=== PATIENT | female | born 1985 | race American Indian/Alaskan Native ===

== ENCOUNTER 2020-08-23 21:10 | Emergency (ER) | payer SELFPAY ==
[2020-08-23 21:52] VITALS: BP 139/96
[2020-08-23] MEDS ORDERED: ASPIRIN 325 MG TAB PO ONE (21:52)
[2020-08-23 22:16] LABS: Basophils % (Auto) 0.4 % (0.0-1.8); Eosinophils # (Auto) 0.3 K/mm3 (0.0-0.4); Eosinophils % (Auto) 3.7 % (0.0-4.3); Hematocrit 36.6 % (30.3-42.9); Hemoglobin 11.8 gm/dl (10.1-14.3); Lymphocytes # (Auto) 1.5 K/mm3 (1.2-5.4); Lymphocytes % (Auto) 20.6 % (13.4-35.0); Mean Corpuscular HGB Conc 32 % (30-34); Mean Corpuscular Volume 82 fl (79-97); Monocytes # (Auto) 0.3 K/mm3 (0.0-0.8); Monocytes % (Auto) 3.7 % (0.0-7.3); Platelet Count 406 K/mm3 (140-440); Red Blood Count 4.45 M/mm3 (3.65-5.03); Red Cell Distribution Width 16.9 % (13.2-15.2)
--- NOTE | 2020-08-23 22:37 | XRay Report ---
CHEST 2 VIEWS INDICATION / CLINICAL INFORMATION: chest pain. COMPARISON: None available. FINDINGS: SUPPORT DEVICES: None. HEART / MEDIASTINUM: No significant abnormality. LUNGS / PLEURA: There is bilateral interstitial prominence with patchy pulmonary opacities in the flo g bases. No pneumothorax. ADDITIONAL FINDINGS: No significant additional findings. IMPRESSION: 1. Bilateral interstitial prominence could reflect mild pulmonary edema. There may be a component of emphysema as well. 2. Patchy pulmonary opacities in the lung bases may represent atelectasis although developing pneumon ia is a consideration. Signer Name: Sharad Landon MD Signed: 08/23/2020 10:32 PM Workstation Name: [id number]
[2020-08-23 22:41] LABS: Alanine Aminotransferase 5 units/L (7-56); Albumin 3.5 g/dL (3.9-5); Blood Urea Nitrogen 6 mg/dL (7-17); Calcium 8.9 mg/dL (8.4-10.2); Hemolysis Index 4
[2020-08-23 22:45] LABS: BUN/Creatinine Ratio 10
[2020-08-23] MEDS ORDERED: ASPIRIN 325 MG TAB ONE (23:54)
[2020-08-24] MEDS ORDERED: predniSONE 20 MG TAB PO ONE (00:23)
[2020-08-24] MEDS ORDERED: IPRATROPIUM/ALBUTEROL SULFATE 3 ML AMPUL.NEB IH ONE (00:23)
[2020-08-24] MEDS ORDERED: LIDOCAINE-MPF (1%) 10 MG/1 ML VIAL 5 ML INFILTRATI ONE (00:23)
[2020-08-24] MEDS ORDERED: ALBUTEROL 2.5 MG/3 ML NEBU IH ONE (00:23)
[2020-08-24] MEDS ORDERED: AZITHROMYCIN 250 MG TAB PO ONE (00:23)
--- NOTE | 2020-08-24 02:57 | Emergency Department Report ---
ED Chest Pain HPI - General Chief Complaint: Chest Pain Stated Complaint: CHEST PAIN/ADRIAN Source: patient Mode of arrival: Ambulatory Limitations: No Limitations - History of Present Illness Initial Comments: Patient is a 35-year-old -[place] female with a history of SLE and chronic pain due to fibromyalgia who presents to the ED with complaint of acute onset persistent shortness of breath, left lateral chest wall pain, chest tightness and persistent dry cough for the last 1 week but worse in the last 2 days. Patient states that any movement or deep inhalation makes the pain worse. Patient also states that the pain radiated to her left mid posterior thoracic area. Patient denies fever, chills, nausea, vomiting, dizziness, syncope, abdominal pain, traumatic injury, heavy lifting, dysuria, urinary frequency and urgency, sore throat, nasal and sinus congestion. MD Complaint: chest pain (Left lateral chest wall pain), other (Shortness of breath, persistent dry cough) -: Sudden, week(s) (1) Onset: during exertion, awoke with symptoms Pain Location: left chest (LATERAL) Pain Radiation: back (Mid posterior thoracic area) Severity: severe Severity scale (0 -10): 7 Quality: tightness, aching, sharp Consistency: constant Improves With: nothing Worsens With: exertion, inspiration, palpation, movement re: dyspnea. denies: nausea, vomting, diaphoresis, sense of impending doom Other Symptoms: cough. denies: fever, syncope, rash, acid taste in mouth, leg swelling, palpitations, burping Treatments Prior to Arrival: none Aspirin use within the Past 7 Days: (0) No - Related Data On Oral Contraceptives: No Previous Rx's Medication Instructions Recorded Last Taken Type Albuterol Sulfate [Proventil Hfa] 1 - 2 puff IH Q4H PRN #1 hfa.aer.ad 08/24/20 Unknown Rx Benzonatate [Tessalon Perles] 100 mg PO Q8HR #30 capsule 08/24/20 Unknown Rx Ibuprofen [Motrin] 600 mg PO Q8H PRN #30 tablet 08/24/20 Unknown Rx levoFLOXacin [Levaquin TAB] 500 mg PO QDAY #10 tablet 08/24/20 Unknown Rx methylPREDNISolone [Medrol 4MG 4 mg PO DAILY #21 tab.ds.pk 08/24/20 Unknown Rx DOSEPAK (21 tabs)] Allergies Allergy/AdvReac Type Severity Reaction Status Date / Time No Known Allergies Allergy Unverified 08/23/20 21:48 Heart Score - HEART Score History: Slightly suspicious EKG: Normal Age: < 45 Risk factors: 1-2 risk factors Troponin: < normal limit HEART Score: 1 - Critical Actions Critical Actions: 0-3 pts:0.9-1.7%risk of adverse cardiac event.Candidate for discharge ED Review of Systems ROS: Stated complaint: CHEST PAIN/ADRIAN Other details as noted in HPI Constitutional: denies: chills, fever Eyes: denies: eye pain, eye discharge, vision change ENT: congestion. denies: ear pain, throat pain Respiratory: cough, shortness of breath, SOB with exertion, wheezing Cardiovascular: chest pain (Left lateral chest pain). denies: palpitations, edema Endocrine: no symptoms reported Gastrointestinal: denies: abdominal pain, nausea, vomiting, diarrhea Genitourinary: denies: urgency, dysuria, discharge Musculoskeletal: denies: back pain, joint swelling, arthralgia Skin: denies: rash, lesions Neurological: denies: headache, weakness, paresthesias Psychiatric: denies: anxiety, depression Hematological/Lymphatic: denies: easy bleeding, easy bruising ED Past Medical Hx - Past Medical History Previous Medical History?: Yes Additional medical history: Lupus, connective tissue disease, fibromyalgia - Surgical History Additional Surgical History: Torn meniniscus - Social History Smoking Status: Never Smoker - Medications Home Medications: Home Medications Medication Instructions Recorded Confirmed Last Taken Type Albuterol Sulfate [Proventil Hfa] 1 - 2 puff IH Q4H PRN #1 hfa.aer.ad 08/24/20 Unknown Rx Benzonatate [Tessalon Perles] 100 mg PO Q8HR #30 capsule 08/24/20 Unknown Rx Ibuprofen [Motrin] 600 mg PO Q8H PRN #30 tablet 08/24/20 Unknown Rx levoFLOXacin [Levaquin TAB] 500 mg PO QDAY #10 tablet 08/24/20 Unknown Rx methylPREDNISolone [Medrol 4MG 4 mg PO DAILY #21 tab.ds.pk 08/24/20 Unknown Rx DOSEPAK (21 tabs)] ED Physical Exam - General Limitations: No Limitations General appearance: alert, in no apparent distress - Head Head exam: Present: atraumatic, normocephalic, normal inspection - Eye Eye exam: Present: normal appearance, PERRL, EOMI. Absent: periorbital swelling, periorbital tenderness Pupils: Present: normal accommodation - ENT ENT exam: Present: normal exam, normal orophraynx, mucous membranes moist, TM's normal bilaterally, normal external ear exam - Neck Neck exam: Present: normal inspection, full ROM - Respiratory Respiratory exam: Present: wheezes (Mildly diffuse coarse wheezes throughout), rhonchi (Left lower lobe audible crackling rhonchi), chest wall tenderness (Palpable left lateral chest wall tenderness). Absent: respiratory distress, rales, accessory muscle use, decreased breath sounds, prolonged expiratory - Cardiovascular Cardiovascular Exam: Present: normal rhythm, tachycardia, normal heart sounds. Absent: systolic murmur, diastolic murmur, rubs, gallop - GI/Abdominal GI/Abdominal exam: Present: soft, normal bowel sounds. Absent: tenderness, guarding, rebound, hyperactive bowel sounds, hypoactive bowel sounds, organomegaly - Extremities Exam Extremities exam: Present: normal inspection, full ROM, normal capillary refill - Back Exam Back exam: Present: normal inspection, full ROM. Absent: tenderness, CVA tenderness (R), CVA tenderness (L), muscle spasm, paraspinal tenderness, vertebral tenderness - Neurological Exam Neurological exam: Present: alert, oriented X3, CN II-XII intact, normal gait, reflexes normal - Psychiatric Psychiatric exam: Present: normal affect, normal mood, anxious - Skin Skin exam: Present: warm, dry, intact, normal color. Absent: rash ED Course Vital Signs 08/23/20 08/24/20 21:51 02:09 Temperature 99.1 F Pulse Rate 102 H Pulse Rate [ 110 H Bilateral Throughout] Respiratory 18 Rate Respiratory 16 Rate [Bilateral Throughout] Blood Pressure 139/96 O2 Sat by Pulse 99 Oximetry JACOB score - Jacob Score Age > 65: (0) No Aspirin use within the Past 7 Days: (0) No 3 or more CAD Risk Factors: (0) No 2 or more Angina events in past 24 hrs: (0) No Known CAD with more than 50% Stenosis: (0) No Elevated Cardiac Markers: (0) No ST Deviation Greater than 0.5mm: (0) No JACOB Score: 0 ED Medical Decision Making - Lab Data Result diagrams: 08/23/20 22:03 08/23/20 22:03 - Radiology Data [facility] [address] [place] [address] XRay Report Signed Patient: SILVIA CATALAN MR#: [id number] : 1985 Acct:[id number] Age/Sex: 35 / F ADM Date: 08/23/20 Loc: ED Attending Dr: Ordering Physician: ED MD ROSAURA Date of Service: 08/23/20 Procedure(s): XR chest routine 2V Accession Number(s): [id number] cc: ED MD ROSAURA Fluoro Time In Minutes: CHEST 2 VIEWS INDICATION / CLINICAL INFORMATION: chest pain. COMPARISON: None available. FINDINGS: SUPPORT DEVICES: None. HEART / MEDIASTINUM: No significant abnormality. LUNGS / PLEURA: There is bilateral interstitial prominence with patchy pulmonary opacities in the lung bases. No pneumothorax. ADDITIONAL FINDINGS: No significant additional findings. IMPRESSION: 1. Bilateral interstitial prominence could reflect mild pulmonary edema. There may be a component of emphysema as well. 2. Patchy pulmonary opacities in the lung bases may represent atelectasis although developing pneumonia is a consideration. Signer Name: Evelina Landon MD Signed: 08/23/2020 10:32 PM Workstation Name: [id number] Transcribed By: SS Dictated By: EVELINA LANDON Electronically Authenticated By: EVELINA LANDON Signed Date/Time: 08/23/202231 DD/ 30 TD/TT: - Medical Decision Making This is a 35-year-old -[place] female with a history of SLE and chronic pain due to fibromyalgia who presents to the ED with complaint of acute onset persistent shortness of breath, left lateral chest wall pain, chest tightness and persistent dry cough for the last 1 week but worse in the last 2 days. Patient states that any movement or deep inhalation makes the pain worse. Patient also states that the pain radiated to her left mid posterior thoracic area. In the ED, patient is alert and oriented x3 and is not in any distress but anxious and tachycardic in triage. Lab test results were reviewed and are all nonactionable including initial and repeat troponin levels. Patient heart score is 1. The EKG shows sinus rhythm with a ventricular rate of [address] or T wave abnormalities. Chest x-ray shows bilateral interstitial prominence could reflect mild pulmonary edema. There may be a component of emphysema as well. It also showed patchy pulmonary opacities in the lung bases may represent atelectasis although developing pneumonia is a consideration. Patient received DuoNeb and albuterol treatment in the ED. Patient also received steroids in the ED. Based on these findings, the patient also received Rocephin 1 g intramuscular injection and azithromycin 500 mg p.o. x1. On reevaluation, patient's pain is well controlled medications. Patient ade schilling is well controlled as well. Patient was therefore discharged home on antibiotics, albuterol inhaler, steroid Dosepak and pain medications. Patient was advised to follow-up with her primary care physician in 3 to 5 days for reevaluation or return to the ED immediately if symptoms get worse. - Differential Diagnosis Pneumonia; asthma; bronchitis; ACS; COVID-19; URI Critical Care Time: Yes Critical care attestation.: If time is entered above; I have spent that time in minutes in the direct care of this critically ill patient, excluding procedure time. Critical Care Time: 35 MINUTES ED Disposition Clinical Impression: Shortness of breath, Pleuritic chest pain, Nonspecific chest pain Community acquired pneumonia Qualifiers: Laterality: left Lung location: lower lobe of lung Qualified Code(s): J18.9 - Pneumonia, unspecified organism Disposition: DC-01 TO HOME OR SELFCARE Is pt being admited?: No Does the pt Need Aspirin: No Condition: Stable Instructions: Nonspecific Chest Pain, Adult, Bacterial Pneumonia (ED), Nonspecific Chest Pain, Adult, Qzko-dl-Qcyl, Community-Acquired Pneumonia, Adult, [id number] Additional Instructions: All lab test results were reviewed and are all nonactionable. Chest x-ray shows signs consistent with left lower lobe pneumonia. Therefore take medications with food, drink plenty of fluids and follow-up with your primary care physician in 5 to 7 days for reevaluation. Return to the ED immediately if symptoms get worse. Prescriptions: levoFLOXacin [Levaquin TAB] 500 mg PO QDAY #10 tablet methylPREDNISolone [Medrol 4MG DOSEPAK (21 tabs)] 4 mg PO DAILY #21 tab.ds.pk Ibuprofen [Motrin] 600 mg PO Q8H PRN #30 tablet PRN Reason: Pain Albuterol Sulfate [Proventil Hfa] 1 - 2 puff IH Q4H PRN #1 hfa.aer.ad PRN Reason: Shortness Of Breath Benzonatate [Tessalon Perles] 100 mg PO Q8HR #30 capsule Referrals: [facility] [Provider Group] - 3-5 Days Time of Disposition: 02:59 Print Language: CHINESE
--- NOTE | 2020-08-25 09:51 | Electrocardiograph Report ---
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
--- NOTE | 2020-08-25 09:52 | Electrocardiograph Report ---
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
== END 2020-08-24 03:15 | disposition home or self-care (01) ==
LOC: ED 21:10
DX: J18.9 Pneumonia, unspecified organism (principal); R07.89 Other chest pain; R06.02 Shortness of breath; Z79.899 Other long term (current) drug therapy; Z98.890 Other specified postprocedural states
CPT/HCPCS: 36415; 71046; 80053; 84484; 85025; 93005; 94640; 96372; 99284; J0696; J7512; 94644

== ENCOUNTER 2020-09-04 11:24 | Emergency (ER) | payer SELFPAY ==
[2020-09-04] MEDS ORDERED: SODIUM CHLORIDE 0.9% 1000 ML 1,000 ML IV ONE (11:40)
[2020-09-04] MEDS ORDERED: ACETAMINOPHEN 325 MG TAB PO ONE (11:40)
--- NOTE | 2020-09-04 11:43 | Event Note ---
ED Screening Note Date of service: 09/04/20 Time: 11:42 ED Screening Note: Patient presents to the ER today with complaints of fever (101 today at work); cough, shortness of breath, wheezing, chest tightness, runny nose, nasal congestion and sore throat. Onset yesterday. Patient was diagnosed with pneumonia about 2 weeks ago. She was prescribed antibiotics which she completed. She states that she has started to feel better after the medications. She denies any history of tobacco use, asthma or any other lung disease, she denies any heart disease, diabetes or any significant past medical history This initial assessment/diagnostic orders/clinical plan/treatment(s) is/are subject to change based on patients health status, clinical progression and re- assessment by fellow clinical providers in the ED. Further treatment and workup at subsequent clinical providers discretion. Patient/guardian urged not to elope from the ED as their condition may be serious if not clinically assessed and managed. Initial orders include: CBC, CMP, mag, chest x-ray/EKG
[2020-09-04 11:54] LABS: Basophils % (Auto) 0.2 % (0.0-1.8); Eosinophils # (Auto) 0.2 K/mm3 (0.0-0.4); Eosinophils % (Auto) 2.2 % (0.0-4.3); Hematocrit 35.5 % (30.3-42.9); Hemoglobin 11.7 gm/dl (10.1-14.3); Lymphocytes # (Auto) 1.3 K/mm3 (1.2-5.4); Mean Corpuscular HGB Conc 33 % (30-34); Mean Corpuscular Volume 82 fl (79-97); Monocytes # (Auto) 0.3 K/mm3 (0.0-0.8); Monocytes % (Auto) 3.3 % (0.0-7.3); Platelet Count 375 K/mm3 (140-440); Red Blood Count 4.34 M/mm3 (3.65-5.03)
[2020-09-04 12:16] LABS: Alanine Aminotransferase 7 units/L (7-56); Blood Urea Nitrogen 7 mg/dL (7-17); Calcium 8.3 mg/dL (8.4-10.2); Hemolysis Index 4
[2020-09-04] MEDS ORDERED: ALBUTEROL 2.5 MG/3 ML NEBU IH ONE (12:17)
--- NOTE | 2020-09-04 12:21 | Emergency Department Report ---
ED General Adult HPI - General Chief complaint: Fever Stated complaint: FEVER Time Seen by Provider: 09/04/20 12:11 Source: patient Mode of arrival: Ambulatory Limitations: No Limitations - History of Present Illness Initial comments: 35-year-old female with past medical history of lupus presents with chief complaint of shortness of breath. According to the patient she was here couple weeks ago and diagnosed with pneumonia, placed on Zithromax and completed the course, began to feel better however last evening began to have worsening cough again along with some shortness of breath and chest tightness. She also reports fever, congestion but denies vomiting or diarrhea. The patient states that she had COVID-19 last year. Has not been tested during this illness. Symptoms gradual in onset, moderate severity, no alleviating or exacerbating factors. Severity scale (0 -10): 6 - Related Data Previous Rx's Medication Instructions Recorded Last Taken Type Benzonatate [Tessalon Perles] 100 mg PO Q8HR #30 capsule 08/24/20 Unknown Rx Ibuprofen [Motrin] 600 mg PO Q8H PRN #30 tablet 08/24/20 Unknown Rx levoFLOXacin [Levaquin TAB] 500 mg PO QDAY #10 tablet 08/24/20 Unknown Rx methylPREDNISolone [Medrol 4MG 4 mg PO DAILY #21 tab.ds.pk 08/24/20 Unknown Rx DOSEPAK (21 tabs)] Albuterol Sulfate [Proventil Hfa] 1 - 2 puff IH Q4H PRN #1 hfa.aer.ad 09/04/20 Unknown Rx Doxycycline Hyclate [Doxycycline 100 mg PO Q12HR #20 tab 09/04/20 Unknown Rx Hyclate TAB] predniSONE [Deltasone] 40 mg PO QDAY #10 tab 09/04/20 Unknown Rx Allergies Allergy/AdvReac Type Severity Reaction Status Date / Time No Known Allergies Allergy Verified 09/04/20 11:26 ED Review of Systems ROS: Stated complaint: FEVER Other details as noted in HPI Comment: All other systems reviewed and negative ED Past Medical Hx - Past Medical History Previous Medical History?: Yes Additional medical history: Lupus, connective tissue disease, fibromyalgia - Surgical History Additional Surgical History: Torn meniniscus - Social History Smoking Status: Never Smoker Substance Use Type: None - Medications Home Medications: Home Medications Medication Instructions Recorded Confirmed Last Taken Type Benzonatate [Tessalon Perles] 100 mg PO Q8HR #30 capsule 08/24/20 Unknown Rx Ibuprofen [Motrin] 600 mg PO Q8H PRN #30 tablet 08/24/20 Unknown Rx levoFLOXacin [Levaquin TAB] 500 mg PO QDAY #10 tablet 08/24/20 Unknown Rx methylPREDNISolone [Medrol 4MG 4 mg PO DAILY #21 tab.ds.pk 08/24/20 Unknown Rx DOSEPAK (21 tabs)] Albuterol Sulfate [Proventil Hfa] 1 - 2 puff IH Q4H PRN #1 hfa.aer.ad 09/04/20 Unknown Rx Doxycycline Hyclate [Doxycycline 100 mg PO Q12HR #20 tab 09/04/20 Unknown Rx Hyclate TAB] predniSONE [Deltasone] 40 mg PO QDAY #10 tab 09/04/20 Unknown Rx ED Physical Exam - General Limitations: No Limitations General appearance: alert, in no apparent distress - Head Head exam: Present: atraumatic, normocephalic - Eye Eye exam: Present: normal appearance - ENT ENT exam: Present: mucous membranes moist - Neck Neck exam: Present: normal inspection - Respiratory Respiratory exam: Present: normal lung sounds bilaterally. Absent: respiratory distress, wheezes, rales - Cardiovascular Cardiovascular Exam: Present: normal rhythm, tachycardia. Absent: systolic murmur, diastolic murmur, rubs, gallop - GI/Abdominal GI/Abdominal exam: Present: soft, normal bowel sounds. Absent: tenderness - Extremities Exam Extremities exam: Present: normal inspection - Back Exam Back exam: Present: normal inspection - Neurological Exam Neurological exam: Present: alert, oriented X3 - Psychiatric Psychiatric exam: Present: normal affect, normal mood - Skin Skin exam: Present: warm, dry, intact, normal color. Absent: rash ED Course Vital Signs 09/04/20 09/04/20 09/04/20 11:31 13:00 14:04 Temperature 97.8 F Pulse Rate 123 H 107 H 107 H Respiratory 20 25 H 25 H Rate Blood Pressure 133/87 125/80 125/80 [Right] O2 Sat by Pulse 99 98 98 Oximetry 09/04/20 14:30 Temperature Pulse Rate 106 H Respiratory 23 Rate Blood Pressure 134/84 [Right] O2 Sat by Pulse 98 Oximetry ED Medical Decision Making - Lab Data Result diagrams: 09/04/20 11:43 09/04/20 11:43 Lab Results 09/04/20 09/04/20 09/04/20 Range/Units 11:43 11:43 11:43 WBC 7.8 (4.5-11.0) K/mm3 RBC 4.34 (3.65-5.03) M/mm3 Hgb 11.7 (10.1-14.3) gm/dl Hct 35.5 (30.3-42.9) % MCV 82 (79-97) fl MCH 27 L (28-32) pg MCHC 33 (30-34) % RDW 17.0 H (13.2-15.2) % Plt Count 375 (140-440) K/mm3 Lymph % (Auto) 17.0 (13.4-35.0) % [place] % (Auto) 3.3 (0.0-7.3) % Eos % (Auto) 2.2 (0.0-4.3) % Baso % (Auto) 0.2 (0.0-1.8) % Lymph # (Auto) 1.3 (1.2-5.4) K/mm3 [place] # (Auto) 0.3 (0.0-0.8) K/mm3 Eos # (Auto) 0.2 (0.0-0.4) K/mm3 Baso # (Auto) 0.0 (0.0-0.1) K/mm3 Seg Neutrophils % 77.3 H (40.0-70.0) % Seg Neutrophils # 6.1 (1.8-7.7) K/mm3 D-Dimer (0-234) ng/mlDDU Sodium 133 L (137-145) mmol/L Potassium 3.8 (3.6-5.0) mmol/L Chloride 100.0 (98-107) mmol/L Carbon Dioxide 27 (22-30) mmol/L Anion Gap 10 mmol/L BUN 7 (7-17) mg/dL Creatinine 0.7 (0.6-1.2) mg/dL Estimated GFR > 60 ml/min BUN/Creatinine Ratio 10 % Glucose 98 (65-100) mg/dL Calcium 8.3 L (8.4-10.2) mg/dL Magnesium 1.70 (1.7-2.3) mg/dL Total Bilirubin 0.20 (0.1-1.2) mg/dL AST 24 (5-40) units/L ALT 7 (7-56) units/L Alkaline Phosphatase 48 (35-129) units/L Troponin T (0.00-0.029) ng/mL NT-Pro-B Natriuret Pep (0-450) pg/mL Total Protein 7.3 (6.3-8.2) g/dL Albumin 3.0 L (3.9-5) g/dL Albumin/Globulin Ratio 0.7 % HCG, Qual Negative (Negative) 09/04/20 09/04/20 09/04/20 Range/Units 12:41 12:41 12:41 WBC (4.5-11.0) K/mm3 RBC (3.65-5.03) M/mm3 Hgb (10.1-14.3) gm/dl Hct (30.3-42.9) % MCV (79-97) fl MCH (28-32) pg MCHC (30-34) % RDW (13.2-15.2) % Plt Count (140-440) K/mm3 Lymph % (Auto) (13.4-35.0) % [place] % (Auto) (0.0-7.3) % Eos % (Auto) (0.0-4.3) % Baso % (Auto) (0.0-1.8) % Lymph # (Auto) (1.2-5.4) K/mm3 [place] # (Auto) (0.0-0.8) K/mm3 Eos # (Auto) (0.0-0.4) K/mm3 Baso # (Auto) (0.0-0.1) K/mm3 Seg Neutrophils % (40.0-70.0) % Seg Neutrophils # (1.8-7.7) K/mm3 D-Dimer 623.51 H (0-234) ng/mlDDU Sodium (137-145) mmol/L Potassium (3.6-5.0) mmol/L Chloride (98-107) mmol/L Carbon Dioxide (22-30) mmol/L Anion Gap mmol/L BUN (7-17) mg/dL Creatinine (0.6-1.2) mg/dL Estimated GFR ml/min BUN/Creatinine Ratio % Glucose (65-100) mg/dL Calcium (8.4-10.2) mg/dL Magnesium (1.7-2.3) mg/dL Total Bilirubin (0.1-1.2) mg/dL AST (5-40) units/L ALT (7-56) units/L Alkaline Phosphatase (35-129) units/L Troponin T 0.016 (0.00-0.029) ng/mL NT-Pro-B Natriuret Pep 183.1 (0-450) pg/mL Total Protein (6.3-8.2) g/dL Albumin (3.9-5) g/dL Albumin/Globulin Ratio % HCG, Qual (Negative) - EKG Data -: EKG Interpreted by Me EKG shows normal: sinus rhythm Rate: tachycardia - EKG Data Interpretation: no acute changes - Radiology Data Radiology results: report reviewed CTA of the chest shows no evidence of pulmonary embolism but does show moderately severe interstitial lung disease - Medical Decision Making Patient presenting with cough chest tightness shortness of breath and fever. The patient was recently treated for pneumonia and states she had begun feeling better. Completed those antibiotics last week. On my exam patient is nontoxic, heart is tachycardic, lungs are overall clear, benign abdomen, no edema in the lower extremities. Differential diagnoses includes pneumonia, bronchitis, viral syndrome, PE. Labs, chest x-ray pending. Patient given IV fluids. Patient's heart rate is improved to around 100, O2 98% on room air, labs are overall unremarkable aside from elevation in D-dimer. A CTA of the chest was obtained and shows moderately severe interstitial lung disease. Radiology states this is more likely than an acute viral pneumonitis. Patient does admit to having COVID-19 last year, question if this chronic change secondary to this. I have advised her on supportive care at home and outpatient follow-up with pulmonology. As she did report a fever I have recommended that she receive a COVID-19 test to rule this out and we will also place on an additional course of antibiotics. We will also prescribe inhaler. Advised to return here for any worsening symptoms otherwise urged her that given these findings at her age she needs close outpatient pulmonology follow-up. A copy of the CT report was provided to the patient. - Differential Diagnosis pneumonia, bronchitis, viral syndrome, PE Critical care attestation.: If time is entered above; I have spent that time in minutes in the direct care of this critically ill patient, excluding procedure time. ED Disposition Clinical Impression: Shortness of breath, Abnormal CT of the chest Disposition: - TO HOME OR SELFCARE Is pt being admited?: No Condition: Stable Instructions: Shortness of Breath, Adult, Pulmonary Fibrosis Additional Instructions: It is recommended that you follow-up with pulmonology in the next week. Prescriptions were written today, recommend obtaining good Rx card for pharmacy use on your phone if you do not have health insurance. Prescriptions: predniSONE [Deltasone] 40 mg PO QDAY #10 tab Doxycycline Hyclate [Doxycycline Hyclate TAB] 100 mg PO Q12HR #20 tab Albuterol Sulfate [Proventil Hfa] 1 - 2 puff IH Q4H PRN #1 hfa.aer.ad PRN Reason: Shortness Of Breath Referrals: PRIMARY CARE, [Primary Care Provider] - 3-5 Days BRIAN HARTMAN MD [Staff Physician] - 3-5 Days Time of Disposition: 15:57
[2020-09-04 12:30] LABS: BUN/Creatinine Ratio 10
--- NOTE | 2020-09-04 12:40 | XRay Report ---
CHEST PA AND LATERAL VIEWS INDICATION: Cough/fever. COMPARISON: 08/23/2020 FINDINGS: Support devices: None. Heart: Within normal limits. Lungs/Pleura: Mild, patchy pulmonary opacities greatest in the bases are relatively stable. No pleura l abnormality. IMPRESSION: 1. No significant change. CT should be considered given lack of improvement. Signer Name: Garth Borrero MD Signed: 09/04/2020 12:36 PM Workstation Name: [id number] (powering [id number]
[2020-09-04 15:07] VITALS: BP 134/84
--- NOTE | 2020-09-04 15:45 | Cat Scan Report ---
CT angio chest INDICATION: r/o PE, abnormal CXR, tachycardia, CP. TECHNIQUE: All CT scans at this location are performed using CT dose reduction for ALARA by means of automated e xposure control. 3 plane MIP and 3-D reconstructions were produced. COMPARISON: Chest radiograph done earlier today. FINDINGS: Small bilateral hilar nodes are probably inflammatory. There is extensive, chronic appearing intersti tial disease in both lower lobes, with minimal but similar disease in the upper lobes, mostly periphe ral. No evidence of pulmonary embolus. IMPRESSION: 1. Moderately severe interstitial lung disease, primarily in the lung bases. CT appearance is more rodriges ggestive of chronic interstitial disease rather than viral pneumonia, but this degree of interstitial lung disease which certainly be unusual at 35 years of age without a congenital pulmonary condition. 2. Negative for pulmonary embolus. Signer Name: Phil Anders MD Signed: 09/04/2020 3:41 PM Workstation Name: [id number]
[2020-09-04] MEDS ORDERED: dexAMETHasone 20 MG/5 ML VIAL IV ONE (15:53)
--- NOTE | 2020-09-05 10:34 | Electrocardiograph Report ---
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
== END 2020-09-04 16:13 | disposition home or self-care (01) ==
LOC: ED 11:24
DX: R06.02 Shortness of breath (principal); R93.89 Abnormal findings on diagnostic imaging of other specified body structures; Z79.899 Other long term (current) drug therapy
CPT/HCPCS: 36415; 71046; 71275; 80053; 83735; 83880; 84484; 84703; 85025; 85379; 93005; 94640; 96360; 96361; 99285; J7030; Q9967

== ENCOUNTER 2020-09-14 12:28 | Inpatient (IN) | payer OTHER ==
--- NOTE | 2020-09-14 13:00 | Event Note ---
ED Screening Note ED Screening Note: SOB for a week +chest tightness +cough +fever no diarrhea no vomiting no abd pain PMHx fibromyalgia previous smoker had a CTA 09/14/2020 which showed interstitial lung disease This initial assessment/diagnostic orders/clinical plan/treatment(s) is/are subject to change based on patients health status, clinical progression and re- assessment by fellow clinical providers in the ED. Further treatment and workup at subsequent clinical providers discretion. Patient/guardian urged not to elope from the ED as their condition may be serious if not clinically assessed and managed. Initial orders include: labs, CXR, EKG
[2020-09-14 13:39] LABS: Basophils # (Auto) 0.1 K/mm3 (0.0-0.1); Basophils % (Auto) 0.6 % (0.0-1.8); Eosinophils # (Auto) 0.3 K/mm3 (0.0-0.4); Eosinophils % (Auto) 2.8 % (0.0-4.3); Hematocrit 36.8 % (30.3-42.9); Hemoglobin 11.7 gm/dl (10.1-14.3); Lymphocytes # (Auto) 1.1 K/mm3 (1.2-5.4); Mean Corpuscular HGB Conc 32 % (30-34); Mean Corpuscular Volume 83 fl (79-97); Monocytes # (Auto) 0.2 K/mm3 (0.0-0.8); Monocytes % (Auto) 1.5 % (0.0-7.3); Platelet Count 393 K/mm3 (140-440); Red Blood Count 4.41 M/mm3 (3.65-5.03); Red Cell Distribution Width 17.3 % (13.2-15.2)
[2020-09-14 14:02] LABS: Alanine Aminotransferase 10 units/L (7-56); Albumin 3.3 g/dL (3.9-5); Blood Urea Nitrogen 6 mg/dL (7-17); Calcium 8.6 mg/dL (8.4-10.2); Hemolysis Index 6
[2020-09-14 14:12] LABS: BUN/Creatinine Ratio 10
--- NOTE | 2020-09-14 15:13 | XRay Report ---
CHEST 2 VIEWS INDICATION: cough, SOB, CP. Duration of 2 weeks COMPARISON: CTA chest and chest x-ray both from 09/04/2020: SUPPORT DEVICES: None. HEART: Within normal limits. LUNGS/PLEURA: Persistent patchy mild bibasilar airspace disease, similar to the previous exam. Majori ty of these findings are most likely chronic given underlying interstitial disease. There is no dense consolidation or effusion. No pneumothorax. ADDITIONAL FINDINGS: None. IMPRESSION: 1. No clearly acute findings. Chronic-appearing changes in the lung bases. Signer Name: Germán Richards MD Signed: 09/14/2020 3:09 PM Workstation Name: [id number]
--- NOTE | 2020-09-14 15:18 | Emergency Department Report ---
ED Shortness of Breath HPI - General Chief Complaint: Dyspnea/Respdistress Stated Complaint: ADRIAN Time Seen by Provider: 09/14/20 12:59 Source: patient Mode of arrival: Ambulatory Limitations: No Limitations - History of Present Illness Initial Comments: 35-year-old female resents to ED with shortness of breath x1 week. Patient reports history of COVID-19 in March 2020 which resulted in 3-day hospitalization, patient was not on the vent. She also reports a possible history of lupus, "some connective tissue disease", and fibromyalgia. Patient has had 3 ED visits over the last month for chest pain or shortness of breath. Patient had CTA chest 10 days ago that was negative for PE but did show a moderately severe interstitial lung disease. Patient was advised to follow-up with the salesman/owner. States she made an appointment but it is not until 09/21/2020. Patient states she has been using her albuterol inhaler, without relief. She reports cough, denies fever. Patient states she has not received her COVID-19 vaccine. MD Complaint: shortness of breath, chest pain -: week(s) (1) Severity: moderate Quality: other (Tightness) Consistency: intermittent Improves With: bronchodilators Worsens With: nothing Associated Symptoms: chest pain, cough Treatments Prior to Arrival: bronchodilator - Related Data Home Oxygen Therapy: No Previous Rx's Medication Instructions Recorded Last Taken Type Ibuprofen [Motrin] 600 mg PO Q8H PRN #30 tablet 08/24/20 Unknown Rx Albuterol Sulfate [Proventil Hfa] 1 - 2 puff IH Q4H PRN #1 hfa.aer.ad 09/04/20 Unknown Rx Allergies Allergy/AdvReac Type Severity Reaction Status Date / Time No Known Allergies Allergy Verified 09/04/20 11:26 ED Review of Systems ROS: Stated complaint: ADRIAN Other details as noted in HPI Comment: All other systems reviewed and negative Constitutional: denies: fever Respiratory: cough, shortness of breath Cardiovascular: chest pain ED Past Medical Hx - Past Medical History Previous Medical History?: No Additional medical history: Lupus, connective tissue disease, fibromyalgia - Surgical History Past Surgical History?: Yes Additional Surgical History: Torn meniniscus - Social History Smoking Status: Never Smoker Substance Use Type: None - Medications Home Medications: Home Medications Medication Instructions Recorded Confirmed Last Taken Type Ibuprofen [Motrin] 600 mg PO Q8H PRN #30 tablet 08/24/20 09/14/20 Unknown Rx Albuterol Sulfate [Proventil Hfa] 1 - 2 puff IH Q4H PRN #1 hfa.aer.ad 09/04/20 09/14/20 Unknown Rx ED Physical Exam - General Limitations: No Limitations General appearance: alert, in no apparent distress - Head Head exam: Present: atraumatic, normocephalic - Eye Eye exam: Present: normal appearance, EOMI - ENT ENT exam: Present: mucous membranes moist - Neck Neck exam: Present: normal inspection - Respiratory Respiratory exam: Present: other (Tachypneic) - Cardiovascular Cardiovascular Exam: Present: normal rhythm, tachycardia - GI/Abdominal GI/Abdominal exam: Present: soft. Absent: distended, tenderness - Extremities Exam Extremities exam: Present: normal inspection. Absent: pedal edema, calf tenderness - Neurological Exam Neurological exam: Present: alert, oriented X3 - Psychiatric Psychiatric exam: Present: normal affect, normal mood - Skin Skin exam: Present: warm, dry, intact, normal color ED Course Vital Signs 09/14/20 09/14/20 09/14/20 12:33 17:04 17:18 Temperature 98.6 F Pulse Rate 128 H 94 H Respiratory 38 H 20 Rate Blood Pressure 156/103 137/96 Blood Pressure 137/96 [Right] O2 Sat by Pulse 96 96 Oximetry ED Medical Decision Making - Lab Data Result diagrams: 09/14/20 13:18 09/14/20 13:18 - EKG Data -: EKG Interpreted by Nh EKG shows normal: sinus rhythm, axis, intervals, QRS complexes, ST-T waves Rate: tachycardia (rate 123) - Radiology Data Radiology results: report reviewed, image reviewed - Medical Decision Making 35 yo F w/ chest pain, SOB. Troponin slightly elevated. No ST changes on EKG. Pt seen and evaluated by Cardiology. Recommends admission for cardiac workup. Spoke w/ Dr Eng, hospitalist, who will admit the pt for further management. - Differential Diagnosis COPD, post-COVID syndrome, pneumonia Critical care attestation.: If time is entered above; I have spent that time in minutes in the direct care of this critically ill patient, excluding procedure time. ED Disposition Clinical Impression: Chest pain, Elevated troponin, Dyspnea Disposition: OP ADMIT IP TO THIS HOSP Is pt being admited?: Yes Condition: Stable Time of Disposition: 16:12
[2020-09-14] MEDS ORDERED: methylPREDNISolone Sod Succinate 125 MG/2 ML INJ IV ONE (15:19)
[2020-09-14] MEDS ORDERED: IPRATROPIUM 0.02% NEBU 2.5 ML IH ONE (15:19)
[2020-09-14] MEDS ORDERED: ALBUTEROL 2.5 MG/3 ML NEBU IH ONE (15:19)
[2020-09-14] MEDS ORDERED: SODIUM CHLORIDE 0.9% 1000 ML 1,000 ML IV ONE (16:07)
--- NOTE | 2020-09-14 16:16 | Consultation ---
History of Present Illness Consult date: 09/14/20 Requesting physician: ANNABELLA BAUMAN Consult reason: chest pain, shortness of breath History of present illness: The pt is a 35-year-old female with a past medical history of COVID-19 in March 2020 which resulted in 3-day hospitalization, ? lupus and/or "some connective tissue disease", and fibromyalgia. She is previously unknown to our practice. She presented with c/o progressively worsening SOB for the past month. Pt also reports some intermittent chest pain with deep inspiration and coughing. Pt is noted to have conversational dyspnea on evaluation. Of note, pt has had 3 ED visits over the last month for chest pain or shortness of breath. Patient had CTA chest 10 days ago that was negative for PE but did show a moderately severe interstitial lung disease. Patient was advised to follow-up with the pul kick plate installer. States she made an appointment but it is not until 09/21/2020. Patient states she has been using her albuterol inhaler, without relief. She reports cough, denies fever. Patient states she has not received her COVID-19 vaccine. Pt denies any known prior cardiac issues or cardiac w/u. Past History Past Medical History: other (as per HPI) Medications and Allergies Allergies Allergy/AdvReac Type Severity Reaction Status Date / Time No Known Allergies Allergy Verified 09/04/20 11:26 Home Medications Medication Instructions Recorded Confirmed Last Taken Type Benzonatate [Tessalon Perles] 100 mg PO Q8HR #30 capsule 08/24/20 Unknown Rx Ibuprofen [Motrin] 600 mg PO Q8H PRN #30 tablet 08/24/20 Unknown Rx levoFLOXacin [Levaquin TAB] 500 mg PO QDAY #10 tablet 08/24/20 Unknown Rx methylPREDNISolone [Medrol 4MG 4 mg PO DAILY #21 tab.ds.pk 08/24/20 Unknown Rx DOSEPAK (21 tabs)] Albuterol Sulfate [Proventil Hfa] 1 - 2 puff IH Q4H PRN #1 hfa.aer.ad 09/04/20 Unknown Rx Doxycycline Hyclate [Doxycycline 100 mg PO Q12HR #20 tab 09/04/20 Unknown Rx Hyclate TAB] predniSONE [Deltasone] 40 mg PO QDAY #10 tab 09/04/20 Unknown Rx Active Meds: Active Medications Sodium Chloride (Nacl 0.9% 1000 Ml) 1,000 mls @ 999 mls/hr IV BOLUS ONE Stop: 09/14/20 17:07 Review of Systems Constitutional: sweats Ears, nose, mouth and throat: no ear pain, no nose pain, no sinus pressure, no sinus pain Cardiovascular: chest pain, shortness of breath, dyspnea on exertion, no orthopnea, no palpitations, no rapid/irregular heart beat, no edema, no syncope, no lightheadedness Respiratory: cough, shortness of breath, dyspnea on exertion, pain on inspiration Gastrointestinal: no abdominal pain, no nausea, no vomiting, no diarrhea, no constipation, no change in bowel habits Genitourinary Female: no pelvic pain, no flank pain, no dysuria, no urinary frequency, no urgency Musculoskeletal: no neck stiffness, no neck pain, no shooting arm pain, no arm numbness/tingling, no low back pain, no shooting leg pain Integumentary: no rash, no pruritis, no redness, no sores, no wounds Neurological: no head injury, no paralysis, no weakness, no parathesias, no numbness, no tingling, no seizures, no syncope Psychiatric: no anxiety Endocrine: no cold intolerance, no heat intolerance Hematologic/Lymphatic: no easy bruising Allergic/Immunologic: no urticaria Physical Examination Vital Signs Temp Pulse Resp BP Pulse Ox 98.6 F 128 H 38 H 156/103 96 09/14/20 12:33 09/14/20 12:33 09/14/20 12:33 09/14/20 12:33 09/14/20 12:33 General appearance: no acute distress HEENT: Positive: PERRL, Normocephaly, Mucus Membranes Moist Neck: Positive: neck supple, trachea midline Cardiac: Positive: Reg Rate and Rhythm, S1/S2 Lungs: Positive: Decreased Breath Sounds Neuro: Positive: Grossly Intact Abdomen: Negative: Tender Skin: Negative: Rash Musculoskeletal: No Pain Extremities: Absent: edema Results 09/14/20 13:18 09/14/20 13:18 Cardiac Enzymes 09/14/20 Range/Units 13:18 AST 29 (5-40) units/L CBC 09/14/20 Range/Units 13:18 WBC 11.3 H (4.5-11.0) K/mm3 RBC 4.41 (3.65-5.03) M/mm3 Hgb 11.7 (10.1-14.3) gm/dl Hct 36.8 (30.3-42.9) % Plt Count 393 (140-440) K/mm3 Lymph # (Auto) 1.1 L (1.2-5.4) K/mm3 [place] # (Auto) 0.2 (0.0-0.8) K/mm3 Eos # (Auto) 0.3 (0.0-0.4) K/mm3 Baso # (Auto) 0.1 (0.0-0.1) K/mm3 Comprehensive Metabolic Panel 09/14/20 Range/Units 13:18 Sodium 135 L (137-145) mmol/L Potassium 4.1 (3.6-5.0) mmol/L Chloride 98.3 (98-107) mmol/L Carbon Dioxide 28 (22-30) mmol/L BUN 6 L (7-17) mg/dL Creatinine 0.6 (0.6-1.2) mg/dL Glucose 98 (65-100) mg/dL Calcium 8.6 (8.4-10.2) mg/dL AST 29 (5-40) units/L ALT 10 (7-56) units/L Alkaline Phosphatase 55 (35-129) units/L Total Protein 7.8 (6.3-8.2) g/dL Albumin 3.3 L (3.9-5) g/dL - Imaging and Cardiology Echo: pending EKG: report reviewed, image reviewed EKG interpretations - Telemetry EKG Rhythm: Sinus Rhythm - EKG Sinus rhythms and dysrhythmias: sinus rhythm Assessment and Plan Pt to be admitted per hospitalists, recommend pulmonary consultation - ? ILD. Chest pain appears pleuritic. Minimal CE elevation appears nonspecific at this time. Cont to trend Michael and f/u ECG in AM. Obtain tte. Will follow. The patient has been seen in conjunction with Dr. Chambers who agrees with the assessment and plan of care. - Patient Problems (1) Abnormal CT of the chest Status: Acute (2) Chest pain Status: Acute (3) Dyspnea Status: Acute (4) Elevated troponin Status: Acute (5) Lupus Status: Suspected (6) Fibromyalgia Status: Suspected
[2020-09-14 16:26] LABS: LDL Cholesterol,Direct 108 mg/dL (50-130)
[2020-09-14 16:27] LABS: Chol/HDL Ratio 3.68 %; HDL Cholesterol 48 mg/dL (40-59)
[2020-09-14] MEDS ORDERED: ALBUTEROL 2.5 MG/3 ML NEBU IH PRN (16:41)
[2020-09-14] MEDS ORDERED: ACETAMINOPHEN 325 MG TAB PO PRN (16:41)
[2020-09-14] MEDS ORDERED: ONDANSETRON 4 MG/2 ML INJ IV PRN (16:41)
--- NOTE | 2020-09-14 16:41 | History and Physical Report ---
History of Present Illness Chief complaint: I am having a hard time breathing History of present illness: 35 YO Female with Interstitial Lung Disease secondary to Coronavirus Infection, SLE, Fibromyalgia presents to ED for evaluation. Patient reports "I cannot catch my breath". Patient states that she has experienced shortness of breath over the past 1 month with worsening symptoms over the past 1 week. Patient k nowledges chest discomfort. Patient seen and evaluated in the emergency department on 3 occasions over the past 1 month. Patient states his symptoms have worsened with increased nebulizer use as well as rescue inhaler use. Patient transported to [facility] via private vehicle for further care and evaluation of the aforementioned symptoms. The patient seen and evaluated in the emergency department. All lab and imaging studies reviewed. Patient found to have interstitial lung disease status post coronavirus infection, chronic bronchitis. Cardiology team consulted in ED. Patient treated with supplemental oxygen and IV steroid therapy with mild improvement in symptoms. Patient denies fever, ch ills, chest pain, palpitation, productive cough, skin rash, recent ill contacts. No prior admission for review. All medication listed at time of admission has been reconciled. Past History Past Medical History: other (as per HPI) Past Surgical History: Other (Torn meniscus) Social history: single. denies: smoking, alcohol abuse, prescription drug abuse Family history: hypertension Medications and Allergies Allergies Allergy/AdvReac Type Severity Reaction Status Date / Time No Known Allergies Allergy Verified 09/04/20 11:26 Home Medications Medication Instructions Recorded Confirmed Last Taken Type Ibuprofen [Motrin] 600 mg PO Q8H PRN #30 tablet 08/24/20 09/14/20 Unknown Rx Albuterol Sulfate [Proventil Hfa] 1 - 2 puff IH Q4H PRN #1 hfa.aer.ad 09/04/20 09/14/20 Unknown Rx Active Meds: Active Medications Sodium Chloride (Nacl 0.9% 1000 Ml) 1,000 mls @ 999 mls/hr IV BOLUS ONE Stop: 09/14/20 17:07 Review of Systems Constitutional: fatigue, weakness, no weight loss, no weight gain, no fever, no chills, no malaise, no lethargy Ears, nose, mouth and throat: no ear pain, no ear discharge, no tinnitis, no decreased hearing, no nose pain, no nasal discharge Breasts: no change in shape, no swelling, no mass Cardiovascular: shortness of breath, dyspnea on exertion, decreased exercise tolerance, no chest pain, no orthopnea, no edema, no syncope, no lightheadedness Respiratory: cough, no cough with sputum, no excessive sputum, no hemoptysis Gastrointestinal: no abdominal pain, no nausea, no vomiting, no diarrhea Genitourinary Female: no pelvic pain, no flank pain, no dysuria, no urinary frequency, no urgency Rectal: no pain, no incontinence, no bleeding Musculoskeletal: no neck stiffness, no neck pain, no shooting arm pain, no arm numbness/tingling, no shooting leg pain, no leg numbness/tingling Integumentary: no rash, no pruritis, no redness, no sores, no jaundice, no blisters Neurological: no head injury, no transient paralysis, no paralysis, no weakness, no numbness, no seizures, no syncope, no tremors Psychiatric: no anxiety, no memory loss, no change in sleep habits, no sleep disturbances, no change in appetite, no change in libido, no suicidal ideation Endocrine: no cold intolerance, no heat intolerance, no polyphagia, no polydipsia, no excessive sweating Hematologic/Lymphatic: no easy bruising, no easy bleeding, no lymphadenopathy Allergic/Immunologic: no urticaria, no allergic rhinitis, no persistent infections, no anaphylaxis Exam - Constitutional Vitals: Temp Pulse Resp BP Pulse Ox 98.6 F 128 H 38 H 156/103 96 09/14/20 12:33 09/14/20 12:33 09/14/20 12:33 09/14/20 12:33 09/14/20 12:33 General appearance: Present: mild distress - EENT Eyes: Present: PERRL ENT: hearing intact, clear oral mucosa - Neck Neck: Present: supple, normal ROM - Respiratory Respiratory effort: normal Respiratory: bilateral: diminished, rhonchi - Cardiovascular Heart Sounds: Present: S1 & S2. Absent: rub, click - Extremities Extremities: pulses symmetrical, No edema Peripheral Pulses: within normal limits - Abdominal General gastrointestinal: Present: soft, non-tender, non-distended, normal bowel sounds Female genitourinary: Present: normal - Integumentary Integumentary: Present: clear, warm, dry - Musculoskeletal Musculoskeletal: gait normal, strength equal bilaterally - Psychiatric Psychiatric: appropriate mood/affect, intact judgment & insight - Neurologic Neurologic: CNII-XII intact, moves all extremities HEART Score - HEART Score Troponin: Troponin T 0.037 ng/mL (0.00-0.029) H 09/14/20 13:18 Results - Labs CBC & Chem 7: 09/14/20 13:18 09/14/20 13:18 Labs: Abnormal lab results 09/14/20 09/14/20 Range/Units 13:18 13:18 WBC 11.3 H (4.5-11.0) K/mm3 MCH 27 L (28-32) pg RDW 17.3 H (13.2-15.2) % Lymph % (Auto) 10.0 L (13.4-35.0) % Lymph # (Auto) 1.1 L (1.2-5.4) K/mm3 Seg Neutrophils % 85.1 H (40.0-70.0) % Seg Neutrophils # 9.6 H (1.8-7.7) K/mm3 Sodium 135 L (137-145) mmol/L BUN 6 L (7-17) mg/dL Troponin T 0.037 H (0.00-0.029) ng/mL Albumin 3.3 L (3.9-5) g/dL Triglycerides 158 H (2-149) mg/dL Assessment and Plan - Patient Problems (1) Interstitial lung disease Current Visit: Yes Status: Acute Plan to address problem: IV steroid therapy, CT scan chest conducted on 09/04/2020 reviewed. Supplemental oxygen, supportive care, ambulatory O2 saturation prior to discharge. (2) Chronic bronchitis with acute exacerbation Current Visit: Yes Status: Acute Plan to address problem: IV steroid therapy, supplemental oxygen, pulse oximetry, nebulizer therapy, supportive care. (3) Fibromyalgia Current Visit: No Status: Suspected Plan to address problem: Supportive care, IV steroid therapy, outpatient rheumatology follow-up. (4) Lupus Current Visit: No Status: Suspected Plan to address problem: Steroid therapy, supportive care, outpatient rheumatology follow-up. (5) Need for education about disease process Current Visit: Yes Status: Acute Plan to address problem: Disease education conducted in the emergency department. Patient informed rega joel care plan. Patient informed that patient symptoms may be secondary to coronavirus infection. Patient informed that she may be a "coronavirus long hauler". And that symptoms may be due to to lung scarring after coronavirus infection. Patient counseled regarding need for outpatient follow-up. Patient knowledges understanding instruction, +30 minutes. (6) DVT prophylaxis Current Visit: Yes Status: Acute Plan to address problem: SCD to bilateral lower extremities while in bed, patient is ambulatory.
[2020-09-14] MEDS ORDERED: HYDROcodone/HOMATROPINE 5-1.5MG /5 ML ORAL LIQD UNIT DOSE PO PRN (16:42)
[2020-09-15] MEDS: methylPREDNISolone Sod Succinate 40 MG/1 ML INJ IV SCH ×3 (02:20→17:19)
[2020-09-15 05:49] LABS: Blood Urea Nitrogen 10 mg/dL (7-17); Calcium 8.9 mg/dL (8.4-10.2); Hemolysis Index 20
[2020-09-15 05:59] LABS: BUN/Creatinine Ratio 17
[2020-09-15] MEDS ORDERED: SODIUM POLYSTYRENE 15 GM/60 ML ORAL LIQD PO SCH (08:30)
--- NOTE | 2020-09-15 09:43 | Progress Note ---
Assessment and Plan Assessment and plan: 35 YO Female with Interstitial Lung Disease secondary to Coronavirus Infection, SLE, Fibromyalgia presents to ED for evaluation. Patient reports "I cannot catch my breath". Patient states that she has experienced shortness of breath over the past 1 month with worsening symptoms over the past 1 week. Patient knowledges chest discomfort. Patient seen and evaluated in the emergency department on 3 occasions over the past 1 month. Patient states his symptoms have worsened with increased nebulizer use as well as rescue inhaler use. Patient transported to [facility] via private vehicle for further care and evaluation of the aforementioned symptoms. The patient seen and evaluated in the emergency department. All lab and imaging studies reviewed. Patient found to have interstitial lung disease status post coronavirus infection, chronic bronchitis. Cardiology team consulted in ED. Patient treated with supplemental oxygen and IV steroid therapy with mild improvement in symptoms. Patient denies fever, chills, chest pain, palpitation, productive cough, skin rash, recent ill contacts. No prior admission for review. All medication listed at time of admission has been reconciled. 09/15: Patient showing some clinical improvement. Will await pulmonary evaluation. She informs me that all this problem started after her Covid diagnosis. She otherwise moved from [place] and has not established with a rn occupational health. Cardiology input is noted echocardiogram is pending further discussion on discharge pending evaluation of home O2 eval, patient overall clinical status and results of pending test. Anticipate discharge today or in 24 hours. Chest x-ray shows no acute pathology 1 chronic appearing lungs Patient had a CTA done on 09/04/2020 which showed moderately severe interstitial lung disease with appearance suggestive of chronic interstitial disease rather than viral. (1) Interstitial lung disease Current Visit: Yes Status: Acute Plan to address problem: IV steroid therapy, CT scan chest conducted on 09/04/2020 reviewed. Supplemental oxygen, supportive care, ambulatory O2 saturation prior to discharge. (2) Chronic bronchitis with acute exacerbation Current Visit: Yes Status: Acute Plan to address problem: IV steroid therapy, supplemental oxygen, pulse oximetry, nebulizer therapy, supportive care. (3) Fibromyalgia Current Visit: No Status: Suspected Plan to address problem: Supportive care, IV steroid therapy, outpatient rheumatology follow-up. (4) Lupus Current Visit: No Status: Suspected Plan to address problem: Steroid therapy, supportive care, outpatient rheumatology follow-up. (5) Need for education about disease process Current Visit: Yes Status: Acute Plan to address problem: Disease education conducted in the emergency department. Patient informed regarding care plan. Patient informed that patient symptoms may be secondary to coronavirus infection. Patient informed that she may be a "coronavirus long hauler". And that symptoms may be due to to lung scarring after coronavirus infection. Patient counseled regarding need for outpatient follow-up. Patient knowledges understanding instruction, +30 minutes. (6) DVT prophylaxis Current Visit: Yes Status: Acute Plan to address problem: SCD to bilateral lower extremities while in bed, patient is ambulatory. History Interval history: Patient seen and examined this morning reports prior history of Covid a few months ago while in [place]. Reports mild improvement in respiratory status states that her breathing issues is worse when she is speaking for long time and has not experienced that this morning. She remains on oxygen no additional event noted overnight. She reports she has had a few diagnosis including lupus and RA Hospitalist Physical - Physical exam Narrative exam: VITAL SIGNS: Reviewed. GENERAL: The patient appears normally developed, Vital signs as documented. HEAD: No signs of head trauma. EYES: Pupils are equal. Extraocular motions intact. EARS: Hearing grossly intact. MOUTH: Oropharynx is normal. NECK: No adenopathy, no JVD. CHEST: Chest with diminished breath sounds bilaterally. No wheezes, rales, or rhonchi. CARDIAC: Regular rate and rhythm. S1 and S2, without murmurs, gallops, or rubs. VASCULAR: No Edema. Peripheral pulses normal and equal in all extremities. ABDOMEN: Soft, non tender and non distended. No rebound or guarding, and no masses palpated. Bowel Sounds normal. MUSCULOSKELETAL: Good range of motion of all major joints. Extremities without clubbing, cyanosis or edema. NEUROLOGIC EXAM: Alert and oriented x 3 No focal sensory or strength deficits. Speech normal. Follows commands. PSYCHIATRIC: Mood normal. SKIN: detail exam as documented in skin assessment - Constitutional Vitals: Temp Pulse Resp BP Pulse Ox 97.6 F 85 18 146/95 96 09/15/20 07:39 09/15/20 07:39 09/15/20 07:39 09/15/20 07:39 09/15/20 08:47 General appearance: Present: mild distress HEART Score - HEART Score Troponin: Troponin T < 0.010 ng/mL (0.00-0.029) 09/15/20 04:10 Results - Labs CBC & Chem 7: 09/14/20 13:18 09/15/20 04:10 Labs: Laboratory Last Values WBC 11.3 K/mm3 (4.5-11.0) H 09/14/20 13:18 RBC 4.41 M/mm3 (3.65-5.03) 09/14/20 13:18 Hgb 11.7 gm/dl (10.1-14.3) 09/14/20 13:18 Hct 36.8 % (30.3-42.9) 09/14/20 13:18 MCV 83 fl (79-97) 09/14/20 13:18 MCH 27 pg (28-32) L 09/14/20 13:18 MCHC 32 % (30-34) 09/14/20 13:18 RDW 17.3 % (13.2-15.2) H 09/14/20 13:18 Plt Count 393 K/mm3 (140-440) 09/14/20 13:18 Lymph % (Auto) 10.0 % (13.4-35.0) L 09/14/20 13:18 Merrick % (Auto) 1.5 % (0.0-7.3) 09/14/20 13:18 Eos % (Auto) 2.8 % (0.0-4.3) 09/14/20 13:18 Baso % (Auto) 0.6 % (0.0-1.8) 09/14/20 13:18 Lymph # (Auto) 1.1 K/mm3 (1.2-5.4) L 09/14/20 13:18 Merrick # (Auto) 0.2 K/mm3 (0.0-0.8) 09/14/20 13:18 Eos # (Auto) 0.3 K/mm3 (0.0-0.4) 09/14/20 13:18 Baso # (Auto) 0.1 K/mm3 (0.0-0.1) 09/14/20 13:18 Seg Neutrophils % 85.1 % (40.0-70.0) H 09/14/20 13:18 Seg Neutrophils # 9.6 K/mm3 (1.8-7.7) H 09/14/20 13:18 Sodium 135 mmol/L (137-145) L 09/15/20 04:10 Potassium 5.1 mmol/L (3.6-5.0) H D 09/15/20 04:10 Chloride 99.1 mmol/L (98-107) 09/15/20 04:10 Carbon Dioxide 26 mmol/L (22-30) 09/15/20 04:10 Anion Gap 15 mmol/L 09/15/20 04:10 BUN 10 mg/dL (7-17) 09/15/20 04:10 Creatinine 0.6 mg/dL (0.6-1.2) 09/15/20 04:10 Estimated GFR > 60 ml/min 09/15/20 04:10 BUN/Creatinine Ratio 17 % 09/15/20 04:10 Glucose 127 mg/dL (65-100) H 09/15/20 04:10 Calcium 8.9 mg/dL (8.4-10.2) 09/15/20 04:10 Total Bilirubin 0.30 mg/dL (0.1-1.2) 09/14/20 13:18 AST 29 units/L (5-40) 09/14/20 13:18 ALT 10 units/L (7-56) 09/14/20 13:18 Alkaline Phosphatase 55 units/L (35-129) 09/14/20 13:18 Troponin T < 0.010 ng/mL (0.00-0.029) 09/15/20 04:10 NT-Pro-B Natriuret Pep 85.65 pg/mL (0-450) 09/14/20 13:18 Total Protein 7.8 g/dL (6.3-8.2) 09/14/20 13:18 Albumin 3.3 g/dL (3.9-5) L 09/14/20 13:18 Albumin/Globulin Ratio 0.7 % 09/14/20 13:18 Triglycerides 158 mg/dL (2-149) H 09/14/20 13:18 Cholesterol 177 mg/dL (50-199) 09/14/20 13:18 LDL Cholesterol Direct 108 mg/dL (50-130) 09/14/20 13:18 HDL Cholesterol 48 mg/dL (40-59) 09/14/20 13:18 Cholesterol/HDL Ratio 3.68 % 09/14/20 13:18 HCG, Qual Negative (Negative) 09/14/20 13:18 Villanueva/IV: Voiding Method Toilet Active Medications - Current Medications Current Medications: Generic Name Dose Route Start Last Admin Trade Name Freq PRN Reason Stop Dose Admin Acetaminophen 650 mg 09/14/20 16:41 Acetaminophen 325 Mg Tab PO Q4H PRN Pain MILD(1-3)/Fever >100.5/HUANG Albuterol 2.5 mg 09/14/20 16:41 09/15/20 00:30 Albuterol 2.5 Mg/3 Ml Nebu IH 2.5 mg Q4HRT PRN Administration Shortness Of Breath Hydrocodone Bit/Homatropine Methylb 10 ml 09/14/20 16:42 09/14/20 17:41 Hydrocodone/Homatropine 5-1.5mg /5 Ml Oral Liqd Unit Dose PO 10 ml Q12H PRN Administration Cough Methylprednisolone Sodium Succinate 40 mg 09/15/20 02:00 09/15/20 09:01 Methylprednisolone Sod Succinate 40 Mg/1 Ml Inj IV 40 mg Q8H ONRBERT Administration Ondansetron HCl 4 mg 09/14/20 16:41 Ondansetron 4 Mg/2 Ml Inj IV Q8H PRN Nausea And Vomiting Sodium Chloride 10 ml 09/14/20 22:00 09/15/20 09:01 Sodium Chloride 0.9% 10 Ml Flush Syringe IV 10 ml BID NROBERT Administration Sodium Chloride 10 ml 09/14/20 16:41 09/15/20 02:21 Sodium Chloride 0.9% 10 Ml Flush Syringe IV 10 ml PRN PRN Administration LINE FLUSH Sodium Polystyrene Sulfonate 15 gm 09/15/20 08:30 09/15/20 09:01 Sodium Polystyrene 15 Gm/60 Ml Oral Liqd PO 09/15/20 14:30 15 gm ONCE NORBERT Administration
--- NOTE | 2020-09-15 10:19 | Progress Note ---
Assessment and Plan The pt is a 35-year-old female with a past medical history of COVID-19 in March 2020 which resulted in 3-day hospitalization, ? lupus and/or "some connective tissue disease", and fibromyalgia. She is previously unknown to our practice. She presented with c/o progressively worsening SOB for the past month. Pt also reports some intermittent chest pain with deep inspiration and coughing. Pt is noted to have conversational dyspnea on evaluation. Of note, pt has had 3 ED visits over the last month for chest pain or shortness of breath. Patient had CTA chest 10 days ago that was negative for PE but did show a moderately severe interstitial lung disease. Patient was advised to follow-up with the cigarette seller. States she made an appointment but it is not until 09/21/2020. Patient states she has been using her albuterol inhaler, without relief. She reports cough, denies fever. Patient states she has not received her COVID-19 v accine. Pt denies any known prior cardiac issues or cardiac w/u. Cardiology is consulted for elevated troponin x 1. Troponin was mildly elevated x 1, nonspecific and subacute. Repeat Troponin is negative. Echo reviewed (09/14/20): EF 55-60%. Ventricular function is normal. Hypoxia does not seem to have a cardiac etiology. Suspect this is related to hx of Covid 19 infection. Nothing further to add from cardiology standpoint. Pt should f/u with Dr Chambers in our office within 1-2 weeks of discharge. This pt was seen in conjunction with Dr Chambers who agrees with this assessment and plan of care. Subjective Date of service: 09/15/20 Principal diagnosis: Acute Respiratory Distress Interval history: Pt is resting comfortably in bed. Tele reviewed: SR 86. No events. Objective Last Vital Signs Temp 97.6 F 09/15/20 07:39 Pulse 85 09/15/20 07:39 Resp 18 09/15/20 07:39 BP 146/95 09/15/20 07:39 Pulse Ox 96 09/15/20 08:47 - Physical Examination General: Appears Well HEENT: Positive: PERRL, Normocephaly, Mucus Membranes Moist Neck: Positive: neck supple, trachea midline Cardiac: Positive: Reg Rate and Rhythm, S1/S2 Lungs: Positive: Decreased Breath Sounds Neuro: Positive: Grossly Intact Abdomen: Positive: Unremarkable, Soft. Negative: Tender Skin: Negative: Rash Musculoskeletal: No Pain Extremities: Present: upper extr. pulses, lower extr. pulses. Absent: edema - Labs and Meds Cardiac Enzymes 09/14/20 Range/Units 13:18 AST 29 (5-40) units/L Lipids 09/14/20 Range/Units 13:18 Triglycerides 158 H (2-149) mg/dL Cholesterol 177 (50-199) mg/dL HDL Cholesterol 48 (40-59) mg/dL Cholesterol/HDL Ratio 3.68 % CBC 09/14/20 Range/Units 13:18 WBC 11.3 H (4.5-11.0) K/mm3 RBC 4.41 (3.65-5.03) M/mm3 Hgb 11.7 (10.1-14.3) gm/dl Hct 36.8 (30.3-42.9) % Plt Count 393 (140-440) K/mm3 Lymph # (Auto) 1.1 L (1.2-5.4) K/mm3 [place] # (Auto) 0.2 (0.0-0.8) K/mm3 Eos # (Auto) 0.3 (0.0-0.4) K/mm3 Baso # (Auto) 0.1 (0.0-0.1) K/mm3 Comprehensive Metabolic Panel 09/14/20 09/15/20 Range/Units 13:18 04:10 Sodium 135 L 135 L (137-145) mmol/L Potassium 4.1 5.1 H D (3.6-5.0) mmol/L Chloride 98.3 99.1 (98-107) mmol/L Carbon Dioxide 28 26 (22-30) mmol/L BUN 6 L 10 (7-17) mg/dL Creatinine 0.6 0.6 (0.6-1.2) mg/dL Glucose 98 127 H (65-100) mg/dL Calcium 8.6 8.9 (8.4-10.2) mg/dL AST 29 (5-40) units/L ALT 10 (7-56) units/L Alkaline Phosphatase 55 (35-129) units/L Total Protein 7.8 (6.3-8.2) g/dL Albumin 3.3 L (3.9-5) g/dL - Imaging and Cardiology EKG: report reviewed, image reviewed Echo: pending - Telemetry EKG Rhythm: Sinus Rhythm - EKG Sinus rhythms and dysrhythmias: sinus rhythm
--- NOTE | 2020-09-15 12:53 | Event Note ---
Date: 09/15/20 Asked to see for shortness of breath with abnormal CT of chest from a few weeks back. Full consult to follow. Patient is post COVID in March of 2020 who now presents with shortness of breath and hypoxemia on room air to the 60's with exertion. Reviewed CT and agree that it does appear to be ILD, some components look like NSIP but the lower lobe consolidation, not sure what to make of it and that is the predominant area. NO good target for Tbbx. Await COVID test results. Curb sided discussed with thoracic who has concerns about post op and intra op complications of post covid patients, particularly clotting. Want to put on steroids but would like to know how long and biopsy would help with that. Once COVID results back, will decide on bronch. may try to do Next week if still in hospital. Unfortunately, patient has no funding which makes plan of action difficult.
--- NOTE | 2020-09-15 17:10 | Electrocardiograph Report ---
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
--- NOTE | 2020-09-15 17:17 | Electrocardiograph Report ---
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
[2020-09-16] MEDS: methylPREDNISolone Sod Succinate 40 MG/1 ML INJ IV SCH ×2 (02:45→11:01)
[2020-09-16 06:23] LABS: Blood Urea Nitrogen 14 mg/dL (7-17); Calcium 8.8 mg/dL (8.4-10.2); Hemolysis Index 2
[2020-09-16 06:27] LABS: BUN/Creatinine Ratio 28
--- NOTE | 2020-09-16 11:19 | Discharge Summary ---
Providers - Providers Date of Admission: 09/15/20 09:54 Attending physician: DANNY SRIVASTAVA MD 09/14/20 15:57 Consult to Physician [CONS] Stat Comment: Consulting Provider: VALERIA CHAMBERS Physician Instructions: Reason For Exam: elevated trop 09/15/20 08:36 Consult to Physician [CONS] Routine Comment: Consulting Provider: BRIAN HARTMAN Physician Instructions: Reason For Exam: shortness of breath, post covid syndrom Primary care physician: UTILITY MECHANIC SUPERVISOR Hospitalization Reason for admission: Shortness of breath Condition: Stable Hospital course: 35 YO Female with Interstitial Lung Disease secondary to Coronavirus Infection, SLE, Fibromyalgia presents to ED for evaluation. Patient reports "I cannot catch my breath". Patient states that she has experienced shortness of breath over the past 1 month with worsening symptoms over the past 1 week. Patient knowledges chest discomfort. Patient seen and evaluated in the emergency department on 3 occasions over the past 1 month. Patient states his symptoms have worsened with increased nebulizer use as well as rescue inhaler use. Patient transported to [facility] via private vehicle for further care and evaluation of the aforementioned symptoms. The patient seen and evaluated in the emergency department. All lab and imaging studies reviewed. Patient found to have interstitial lung disease status post coronavirus infection, chronic bronchitis. Cardiology team consulted in ED. Patient treated with supplemental oxygen and IV steroid therapy with mild improvement in symptoms. Patient denies fever, chills, chest pain, palpitation, productive cough, skin rash, recent ill contacts. No prior admission for review. All medication listed at time of admission has been reconciled. 09/15: Patient showing some clinical improvement. Will await pulmonary evaluation. She informs me that all this problem started after her Covid diagnosis. She otherwise moved from [place] and has not established with a certified shorthand reporter. Cardiology input is noted echocardiogram is pending further discussion on discharge pending evaluation of home O2 eval, patient overall clinical status and results of pending test. Anticipate discharge today or in 24 hours. Chest x-ray shows no acute pathology 1 chronic appearing lungs Patient had a CTA done on 09/04/2020 which showed moderately severe interstitial lung disease with appearance suggestive of chronic interstitial disease rather than viral. 09/16: Over the past 24 hours the patient has a remarkable improvement. Had a walk test today done walked the hallway floor with oxygen saturation remained in the high 90s. I did discuss recommendations per the certified shorthand reporter with the patient in respect to importance for a biopsy patient reports that she understands and will follow up. She would like to go home today she states that she feels much better. She understands the presumed diagnosis of interstitial lung disease status post coronavirus infection and chronic bronchitis. some components look like NSIP but the lower lobe consolidation, not sure what to make of it and that is the predominant area. NO good target for Tbbx. Await COVID test results. Curb sided discussed with thoracic who has concerns about post op and intra op complications of post covid patients, particularly clotting. Want to put on steroids but would like to know how long and biopsy would help with that. Once COVID results back, will decide on bronch. may try to do Next week if still in hospital. Unfortunately, patient has no funding which makes plan of action difficult. Patient also had a cardiology evaluation and per their recommendation Cardiology is consulted for elevated troponin x 1. Troponin was mildly elevated x 1, nonspecific and subacute. Repeat Troponin is negative. Echo reviewed (09/14/20): EF 55-60%. Ventricular function is normal. Hypoxia does not seem to have a cardiac etiology. Suspect this is related to hx of Covid 19 infection. Nothing further to add from cardiology standpoint. Pt should f/u with Dr Chambers in our office within 1-2 weeks of discharge. (1) acute hypoxic respiratory failure with interstitial lung disease Current Visit: Yes Status: Acute Plan to address problem: IV steroid therapy, CT scan chest conducted on 09/04/2020 reviewed. Supplemental oxygen, supportive care, ambulatory O2 saturation prior to discharge. (2) Chronic bronchitis with acute exacerbation Current Visit: Yes Status: Acute Plan to address problem: IV steroid therapy, supplemental oxygen, pulse oximetry, nebulizer therapy, supportive care. (3) Fibromyalgia Current Visit: No Status: Suspected Plan to address problem: Supportive care, IV steroid therapy, outpatient rheumatology follow-up. (4) Lupus Current Visit: No Status: Suspected Plan to address problem: Steroid therapy, supportive care, outpatient rheumatology follow-up. (5) Need for education about disease process Current Visit: Yes Status: Acute Plan to address problem: Disease education conducted in the emergency department. Patient informed regarding care plan. Patient informed that patient symptoms may be secondary to coronavirus infection. Patient informed that she may be a "coronavirus long hauler". And that symptoms may be due to to lung scarring after coronavirus infection. Patient counseled regarding need for outpatient follow-up. Patient knowledges understanding instruction, +30 minutes. Disposition: DC-01 TO HOME OR SELFCARE Final Discharge Diagnosis (Prints w/discharge instructions): Acute hypoxic respiratory failure secondary to interstitial lung disease Time spent for discharge: 35 minutes Core Measure Documentation - Palliative Care Palliative Care/ Comfort Measures: Not Applicable - Core Measures Any of the following diagnoses?: none Exam - Physical Exam Narrative exam: VITAL SIGNS: Reviewed. GENERAL: The patient appears normally developed, Vital signs as documented. HEAD: No signs of head trauma. EYES: Pupils are equal. Extraocular motions intact. EARS: Hearing grossly intact. MOUTH: Oropharynx is normal. NECK: No adenopathy, no JVD. CHEST: Chest with diminished breath sounds bilaterally. No wheezes, rales, or rhonchi. CARDIAC: Regular rate and rhythm. S1 and S2, without murmurs, gallops, or rubs. VASCULAR: No Edema. Peripheral pulses normal and equal in all extremities. ABDOMEN: Soft, non tender and non distended. No rebound or guarding, and no masses palpated. Bowel Sounds normal. MUSCULOSKELETAL: Good range of motion of all major joints. Extremities without clubbing, cyanosis or edema. NEUROLOGIC EXAM: Alert and oriented x 3 No focal sensory or strength deficits. Speech normal. Follows commands. PSYCHIATRIC: Mood normal. SKIN: detail exam as documented in skin assessment - Constitutional Vitals: Temp Pulse Resp BP Pulse Ox 98.5 F 88 18 133/91 100 09/16/20 07:25 09/16/20 10:00 09/16/20 08:00 09/16/20 08:00 09/16/20 08:00 Plan Activity: advance as tolerated, fall precautions Diet: low fat Special Instructions: record daily weights, smoking cessation Follow up with: BRIAN HARTMAN MD [Staff Physician] - 7 Days PRIMARY CAREMD [Primary Care Provider] - 7 Days VALERIA CHAMBERS MD [Staff Physician] - 7 Days Prescriptions: HYDROcodone/HOMATROP 5-1.5 [HYDROcodone-Homatropin 5-1.5 mg per 5 ML] 10 ml PO Q12H PRN #100 ml PRN Reason: Cough Prednisone [predniSONE 10 mg (6-Day Pack, Tabs)] 10 mg PO .TAPER #1 tab.ds.pk Albuterol Sulfate [Proventil Hfa] 1 - 2 puff IH Q4H PRN #1 hfa.aer.ad PRN Reason: Shortness Of Breath
[2020-09-16 11:34] VITALS: BP 132/89
== END 2020-09-16 13:15 | disposition home or self-care (01) | DRG 196 ==
LOC: ED 12:28 → 4A 16:41 → OBSVTOIN 09-15 09:54
PROVIDERS: ADMIT Internal Medicine; ATTEND Internal Medicine
PROC: 4A033R1 Measurement of Arterial Saturation, Peripheral, Percutaneous Approach (ICD-10-PCS; principal; 2020-09-15)
DX: J84.9 Interstitial pulmonary disease, unspecified (principal); J96.01 Acute respiratory failure with hypoxia; M32.9 Systemic lupus erythematosus, unspecified; M79.7 Fibromyalgia; R79.89 Other specified abnormal findings of blood chemistry; Z86.16 Personal history of COVID-19; R92.8 Other abnormal and inconclusive findings on diagnostic imaging of breast; J42 Unspecified chronic bronchitis
CPT/HCPCS: 36415; 36600; 71046; 80048; 80053; 80061; 82805; 83880; 84484; 84703; 85025; 93005; 93306; 94640; 96361; 96374; 96375; 96376; G0378; J2920; J2930; J7030